=== PATIENT | male | born 2000 | race African-American/Black ===

== ENCOUNTER 2025-04-23 20:24 | Emergency (ER) | payer MEDICAID, OTHER ==
[~2025-04-23] VITALS: Ht 182.9 cm; Wt 75.0 kg
[2025-04-23 20:41] VITALS: O2SAT 98
[2025-04-23 21:45] LABS: BASOPHILS % 0.5 % (0.0-2.0); EOSINOPHILS % 0.2 % (0.0-5.0); HEMATOCRIT. 46.7 % (42.0-52.0); HEMOGLOBIN. 15.4 g/dL (14.0-18.0); LYMPHOCYTES % 15.9 % (20.0-50.0); MEAN PLATELET VOLUME 7.7 fl (7.4-10.4); MONOCYTES % 8.7 % (2.0-8.0); NEUTROPHILS % 74.7 % (40.0-76.0); PLATELET 200 x1000/uL (130-400); RED BLOOD CELL COUNT 5.12 mill/uL (4.7-6.1); RED CELL DISTRIBUTION WIDTH 13.1 % (11.6-14.6)
[2025-04-23 21:59] LABS: CREATININE 1.0 mg/dL (0.6-1.3); UREA NITROGEN BLOOD 5 mg/dL (9-23)
[2025-04-23 22:01] LABS: ASPARTATE AMINOTRANSFERASE 164 IU/L (<34); BILIRUBIN DIRECT 0.3 mg/dL (<=3.0); BILIRUBIN TOTAL 1.0 mg/dL (0.1-1.0)
[2025-04-23 22:02] LABS: PROTEIN TOTAL 7.5 g/dL (6.0-8.3)
[2025-04-23 22:31] VITALS: TEMP 37.1; O2SAT 100
[2025-04-23] MEDS: ONDANSETRON 4MG ODT PO ONE (22:33)
[2025-04-23 22:34] VITALS: BP 151/87; PULSE 61; RESP 14
[2025-04-23] MEDS: KETOROLAC 15MG/ML VIAL IM ONE (22:34)
== END 2025-04-23 22:42 | disposition left against medical advice (07) ==
LOC: ER 20:24 → CMPBEDREQ 04-24 07:59
DX: R11.2 Nausea with vomiting, unspecified (principal); R10.9 Unspecified abdominal pain
CPT/HCPCS: 99285; 74176; 76705; 80076; 80048; 83690; 85025; 36415; 96372; J1885; Q0162